=== PATIENT | male | born 1965 | race African-American/Black ===

== ENCOUNTER → 2016-11-18 | Outpatient (CLI) | payer OTHER ==
[2016-11-18 11:56] LABS: ABSOLUTE EOSINOPHILS # (AUTO) 0.1 10^3/uL (0.0-0.6); ABSOLUTE LYMPHOCYTES (AUTO) 2.5 10^3/uL (0.5-4.7); ABSOLUTE MONOCYTES (AUTO) 0.6 10^3/uL (0.1-1.4); ABSOLUTE NEUT (AUTO) 5.2 10^3/uL (1.7-8.2); BASOPHILS % (AUTO) 0.4 % (0-2); EOSINOPHILS % (AUTO) 1.1 % (0-6); HEMATOCRIT 37.4 % (37.9-51.0); HEMOGLOBIN 12.7 g/dL (13.5-17.0); HGB HCT DIFFERENCE 0.7; LYMPHOCYTES % (AUTO) 29.5 % (13-45); MEAN CORPUSCULAR HEMOGLOBIN 32.4 pg (27.0-33.4); MEAN CORPUSCULAR HGB CONC 33.9 g/dL (32.0-36.0); MEAN CORPUSCULAR VOLUME 96 fl (80-97); RED BLOOD COUNT 3.92 10^6/uL (4.35-5.55); RED CELL DISTRIBUTION WIDTH 14.2 % (11.5-14.0); WHITE BLOOD COUNT 8.4 10^3/uL (4.0-10.5)
[2016-11-18 12:24] LABS: ALANINE AMINOTRANSFERASE 36 U/L (21-72); ALBUMIN 3.6 g/dL (3.5-5.0); ALKALINE PHOSPHATASE 95 U/L (38-126); ANION GAP 6 (5-19); ASPARTATE AMINO TRANSFERASE 18 U/L (17-59); BILIRUBIN,TOTAL 0.5 mg/dL (0.2-1.3); BLOOD UREA NITROGEN 13 mg/dL (7-20); CALCIUM 9.4 mg/dL (8.4-10.2); CARBON DIOXIDE 27 mmol/L (22-30); CHLORIDE 107 mmol/L (98-107); CHOLESTEROL 192.97 mg/dL (0-200); CREATININE RESULT 1.18 mg/dL (0.52-1.25); Direct HDL 64 mg/dL (>40); GLUCOSE 90 mg/dL (75-110); POTASSIUM 4.2 mmol/L (3.6-5.0); SODIUM 139.7 mmol/L (137-145); TRIGLYCERIDES 146 mg/dL (<150)
[2016-11-18 12:41] LABS: DIRECT LDL 85 mg/dL (<100)
--- NOTE | 2016-11-18 20:08 | EKG REPORT ---
SEVERITY:- ABNORMAL ECG - SINUS RHYTHM FIRST DEGREE AV BLOCK NONSPECIFIC T ABNORMALITIES, INFERIOR LEADS : Confirmed by: Scooby Jarrett 18-Nov-2016 20:06:56
== END ==
LOC: CCC 10:04
DX: I10 Essential (primary) hypertension (principal); R07.9 Chest pain, unspecified
CPT/HCPCS: 36415; 80053; 80061; 83036; 84153; 84443; 85025; 93005; 93010

== ENCOUNTER → 2016-12-02 | Outpatient (CLI) | payer OTHER ==
[~2016-12-02] MED LIST: AMLODIPINE BESYLATE 2.5 MG TABLET PO ONE
--- NOTE | 2016-12-02 18:59 | XCELERA REPORT ---
[address] [address] Transthoracic Echocardiogram Report Name: ESTHER TODD Age: 51 yrs Gender: Male : 1965 Patient Status: Outpatient Patient Location: Study Date: 12/02/2016 10:38 AM Height: 71 in Weight: 236 lb BSA: 2.3 m2 Procedure: A two-dimensional transthoracic echocardiogram with color flow and Doppler was performed. Study Quality: Fair. Reason For Study: CHEST PAIN and HTN. History: CHEST PAIN and HTN. Ordering Physician: [facility] Performed By: Tarah Panchal Interpretation Summary The left ventricle is normal in size. There is mild concentric left ventricular hypertrophy. LV EF is 60% Left ventricular systolic function is normal. Doppler measurements suggest normal left ventricular diastolic function The left ventricular wall motion is normal. There is no thrombus. The right ventricle is normal in size and function. The right atrium is normal. The left atrial size is normal. There is no evidence of mitral valve prolapse. There is no mitral valve stenosis. There is no mitral regurgitation noted. There is no aortic valve stenosis There is no LVOT obstruction. No aortic regurgitation is present. There is no tricuspid stenosis. There is a trace amount of tricuspid regurgitation Right ventricular systolic pressure is normal. RVSP is 21 mm of Hg , with RA mean of 5. There is no pericardial effusion. MMode/2D Measurements \T\ Calculations RVDd: 2.0 cm LVIDd: 4.3 cm FS: 30.4 % Ao root diam: 3.5 cm IVSd: 1.2 cm LVIDs: 3.0 cm EDV(Teich): 83.4 ml LVPWd: 1.2 cm ESV(Teich): 34.9 ml Ao root area: 9.6 cm2 EF(Teich): 58.2 % LA dimension: 3.5 cm LVOT diam: 2.5 cm LVOT area: 5.1 cm2 Doppler Measurements \T\ Calculations MV E max pablo: MV P1/2t max pablo: Ao V2 max: LV V1 max P.5 cm/sec 47.8 cm/sec 93.6 cm/sec 2.3 mmHg MV A max pablo: MV P1/2t: 41.8 msec Ao max PG: LV V1 max: 62.3 cm/sec MVA(P1/2t): 5.3 cm2 3.5 mmHg 75.9 cm/sec MV E/A: 0.76 MV dec slope: JACKIE(V,D): 4.1 cm2 335.1 cm/sec2 PA V2 max: TR max pablo: 54.0 cm/sec 199.7 cm/sec PA max PG: TR max P.0 mmHg 1.2 mmHg Left Ventricle The left ventricle is normal in size. There is mild concentric left ventricular hypertrophy. LV EF is 60%. Left ventricular systolic function is normal. Doppler measurements suggest normal left ventricular diastolic function. The left ventricular wall motion is normal. There is no thrombus. There is no ventricular septal defect visualized. Right Ventricle The right ventricle is normal in size and function. Atria The right atrium is normal. The left atrial size is normal. The interatrial septum is intact with no evidence for an atrial septal defect. Mitral Valve There is no evidence of mitral valve prolapse. There is no vegetation seen on the mitral valve. There is no mitral valve stenosis. There is no mitral regurgitation noted. Aortic Valve The aortic valve is trileaflet. The aortic valve opens well. There is no aortic valvular vegetation. There is no aortic valve stenosis. There is no LVOT obstruction. No aortic regurgitation is present. Tricuspid Valve There is no tricuspid stenosis. There is a trace amount of tricuspid regurgitation. Right ventricular systolic pressure is normal. RVSP is 21 mm of Hg , with RA mean of 5. Pulmonic Valve There is no pulmonic valvular stenosis. There is no pulmonic valvular regurgitation. Great Vessels The aortic root is normal size. Effusions There is no pericardial effusion. : [facility] > Clari Thomas
--- NOTE | 2016-12-03 20:16 | DRAGON STRESS TEST REPORT ---
Exercise EKG treadmill stress test. Data procedure: 12/02/2016. Ordering Provider: [facility]. Indication: Chest pain Coronary risk factors:. Age, and hypertension. Significant physical findings prior to stress testing show a blood pressure of 77 bpm. An subsequently the patient underwent stress testing. Auscultation of the heart shows normal S1 and S2. No S3 or S4 gallops. Systolic murmur in the left sternal border and apex. Lungs are clear to auscultation and percussion. Resting 12-lead EKG:. Sinus Rhythm T inversion in lead 3 only. Procedure: The patient was excised on a standard Librado protocol. . The patient walked a total of 7 minutes and 8 seconds on this protocol and reached a peak heart rate of 141 beats per minute, which is 83% of maximum predicted heart rate for age. This is at a workload of 8.75 METS. The test was stopped because of. The patient described no symptoms of chest pain/discomfort . At peak exercise the patient complained of dizziness. There was no arrhythmias seen but the patient's blood pressure was 198/7072, which could be the cause patient dizziness this soon subsided with the patient rested. Exercise EKG's show:. There is no EKG evidence of excise induced myocardial ischemia. Arrhythmias seen:None. The blood pressure response was per intensive. At peak exercise the blood pressure was 198/72 millimeters of Hg. The double product was 32.0 K. Summary of findings and interpretation: 1. No chest pain or chest discomfort symptoms reproduced. 2. No EKG evidence of ischemia in the form of ST segment depression. 3. Normal blood pressure response. 4. No arrhythmias seen. 5. Good exercise tolerance, good aerobic capacity. Diagnostic treadmill stress test negative for ischemia by EKG criteria.. 6.. The patient complains of dizziness at peak exercise is secondary uncontrolled hypertension Recommendations: Aggressive risk factor modification, and treatment of underlying co-morbidities. JENA
== END ==
LOC: SP 08:43
DX: R07.9 Chest pain, unspecified (principal); I10 Essential (primary) hypertension
CPT/HCPCS: 93017; 93306

== ENCOUNTER 2016-12-24 12:48 | Emergency (ER) | payer SELFPAY ==
[2016-12-24] MEDS ORDERED: IBUPROFEN 800 MG TABLET PO ONE (13:35)
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
[2016-12-24] MEDS ORDERED: OXYCODONE-ACETAMINOPHEN 5-325 MG TABLET PO ONE (15:21)
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
[2016-12-24 16:44] LABS: APPEARANCE,URINE CLEAR; BILIRUBIN,URINE NEGATIVE (NEGATIVE); GLUCOSE, URINE NEGATIVE (NEGATIVE); KETONES,URINE NEGATIVE (NEGATIVE); LEUKOCYTE ESTERASE,URINE NEGATIVE (NEGATIVE); NITRITE,URINE NEGATIVE (NEGATIVE); PROTEIN,URINE NEGATIVE (NEGATIVE); URINE SPECIFIC GRAVITY 1.021; UROBILINOGEN,URINE NEGATIVE mg/dL (<2.0)
[2016-12-24 17:47] VITALS: BP 156/114
== END 2016-12-24 17:28 | disposition home or self-care (01) ==
LOC: ER 12:48
DX: S22.39XA Fracture of one rib, unspecified side, initial encounter for closed fracture (principal); S20.211A Contusion of right front wall of thorax, initial encounter; R07.81 Pleurodynia; I10 Essential (primary) hypertension; M25.511 Pain in right shoulder; F17.200 Nicotine dependence, unspecified, uncomplicated; Y04.8XXA Assault by other bodily force, initial encounter
CPT/HCPCS: 81001; 99284

== ENCOUNTER 2016-12-27 00:04 | Emergency (ER) | payer OTHER ==
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
[2016-12-27 06:56] VITALS: BP 140/94
== END 2016-12-27 06:05 | disposition home or self-care (01) ==
LOC: ER 00:04
DX: S20.212A Contusion of left front wall of thorax, initial encounter (principal); S49.91XA Unspecified injury of right shoulder and upper arm, initial encounter; M25.511 Pain in right shoulder; R07.81 Pleurodynia; Y04.0XXA Assault by unarmed brawl or fight, initial encounter; F17.200 Nicotine dependence, unspecified, uncomplicated; I10 Essential (primary) hypertension; Z88.5 Allergy status to narcotic agent
CPT/HCPCS: 99282

== ENCOUNTER 2017-09-21 08:40 | Emergency (ER) | payer OTHER ==
--- NOTE | 2017-09-21 09:47 | ER Document Report ---
ED General - General Chief Complaint: Back Pain Stated Complaint: NECK PAIN Time Seen by Provider: 09/21/17 09:46 Mode of Arrival: Ambulatory Information source: Patient Notes: 52-year-old male presents with complaints of sciatic pain. Patient notes he has had a history of sciatica in the past which resolved. Patient denies any fevers or chills denies any sudden trauma. Patient denies any numbness weakness loss of bowel or bladder function TRAVEL OUTSIDE OF THE [place] IN LAST 30 DAYS: No - HPI Onset: Other - 3 day duration Onset/Duration: Persistent, Gone - Currently no pain Quality of pain: Achy Severity: Mild Pain Level: 1 Associated symptoms: Body/muscle aches Exacerbated by: Movement Relieved by: Denies Similar symptoms previously: Yes Recently seen / treated by doctor: Yes - Related Data Allergies/Adverse Reactions: tramadol [Tramadol] Allergy (Mild, Verified 09/21/17 08:42) Hives Past Medical History - Social History Smoking Status: Never Smoker Cigarette use (# per day): No Chew tobacco use (# tins/day): No Smoking Education Provided: No Family History: Reviewed & Not Pertinent - Past Medical History Cardiac Medical History: Reports: Hx Hypertension Renal/ Medical History: Denies: Hx Peritoneal Dialysis Past Surgical History: Reports: Hx Orthopedic Surgery - Immunizations Immunizations up to date: Yes Hx Diphtheria, Pertussis, Tetanus Vaccination: Yes Review of Systems - Review of Systems Notes: REVIEW OF SYSTEMS: CONSTITUTIONAL : Denies fever, chills, or sweats. Denies recent illness. EENT: Denies eye, ear, throat, or mouth pain or symptoms. Denies nasal or sinus congestion or discharge. Denies throat, tongue, or mouth swelling or difficulty swallowing. CARDIOVASCULAR: Denies chest pain. Denies palpitations or racing or irregular heart beat. Denies ankle edema. RESPIRATORY: Denies cough, cold, or chest congestion. Denies shortness of breath, difficulty breathing, or wheezing. GASTROINTESTINAL: Denies abdominal pain or distention. Denies nausea, vomiting , or diarrhea. Denies blood in vomitus, stools, or per rectum. Denies black, tarry stools. Denies constipation. GENITOURINARY: Denies difficulty urinating, painful urination, burning, frequency, blood in urine, or discharge. MUSCULOSKELETAL: Admits to low back pain SKIN: Denies rash, lesions or sores. HEMATOLOGIC : Denies easy bruising or bleeding. LYMPHATIC: Denies swollen, enlarged glands. NEUROLOGICAL: Denies confusion or altered mental status. Denies passing out or loss of consciousness. Denies dizziness or lightheadedness. Denies headache. Denies weakness or paralysis or loss of use of either side. Denies problems with gait or speech. Denies sensory loss, numbness, or tingling. Denies seizures. PSYCHIATRIC: Denies anxiety or stress. Denies depression, suicidal ideation, or homicidal ideation. ALL OTHER SYSTEMS REVIEWED AND NEGATIVE. Dictation was performed using [employer] voice recognition software PHYSICAL EXAMINATION: GENERAL: Well-appearing, well-nourished and in no acute distress. HEAD: Atraumatic, normocephalic. EYES: Pupils equal round and reactive to light, extraocular movements intact, sclera anicteric, conjunctiva are normal. ENT: Nares patent, oropharynx clear without exudates. Moist mucous membranes. NECK: Normal range of motion, supple without lymphadenopathy LUNGS: Breath sounds clear to auscultation bilaterally and equal. No wheezes rales or rhonchi. HEART: Regular rate and rhythm without murmurs ABDOMEN: Soft, nontender, nondistended abdomen. No guarding, no rebound. No masses appreciated. Musculoskeletal: Normal range of motion, no pitting or edema. No cyanosis. Admits to tenderness of the left and right buttocks region NEUROLOGICAL: Cranial nerves grossly intact. Normal speech, normal gait. Normal sensory, motor exams PSYCH: Normal mood, normal affect. SKIN: Warm, Dry, normal turgor, no rashes or lesions noted. Physical Exam - Vital signs Vitals: Temp Pulse Resp BP Pulse Ox 98.6 F 93 16 159/117 H 99 09/21/17 08:48 09/21/17 08:48 09/21/17 08:48 09/21/17 08:48 09/21/17 08:48 Course - Re-evaluation Re-evalutation: 09/21/17 10:13 Patient's presentation is consistent with sciatica, he has no neurological deficits is able to ambulate currently has no significant tenderness. He denies any cauda equina concerns therefore I believe he is stable for discharge with treatment. Patient denies a history of diabetes and has been spoken about with the risk factors of steroids After performing a Medical Screening Examination, I estimate there is LOW risk for EXPANDING OR RUPTURED ABDOMINAL AORTIC ANEURYSM, CAUDA EQUINA SYNDROME, EPIDURAL MASS LESION, or HERNIATED DISK CAUSING SEVERE SPINAL STENOSIS, thus I consider the discharge disposition reasonable. I have reevaluated this patient multiple times and no significant life threatening changes are noted. The patient and I have discussed the diagnosis and risks, and we agree with discharging home and close follow-up. We also discussed returning to the Emergency Department immediately if new or worsening symptoms occur with the understanding that symptoms and presentations can change. We have discussed the symptoms which are most concerning (e.g., saddle anesthesia, urinary or bowel incontinence or retention, changing or worsening pain) that necessitate immediate return. - Vital Signs Vital signs: Temp Pulse Resp BP Pulse Ox 98.6 F 93 16 159/117 H 99 09/21/17 08:48 09/21/17 08:48 09/21/17 08:48 09/21/17 08:48 09/21/17 08:48 Discharge - Discharge Clinical Impression: Sciatic leg pain Condition: Stable Disposition: HOME, SELF-CARE Instructions: Low Back Pain ([facility]) Additional Instructions: Follow up with your physician tomorrow for further care or return to the ED IMMEDIATELY if symptoms worsen or new concerns occur. If you cannot afford to follow up with your primary care physician a list of low cost clinics have been provided at the end of your discharge papers as well. Prescriptions: Meloxicam [Mobic] 7.5 mg PO BID #20 tablet Prednisone [Deltasone 20 mg Tablet] 3 tab PO DAILY 5 Days tablet
[2017-09-21] MEDS ORDERED: DEXAMETHASONE SOD PHOS INJ 10 MG/1 ML VIAL IM ONE (09:49)
[2017-09-21] MEDS ORDERED: KETOROLAC TROMETHAMINE 60 MG/2 ML SDV IM ONE (09:49)
[2017-09-21 10:31] VITALS: BP 155/90
== END 2017-09-21 10:29 | disposition home or self-care (01) ==
LOC: ER 08:40
DX: M53.3 Sacrococcygeal disorders, not elsewhere classified (principal); M79.606 Pain in leg, unspecified; M54.9 Dorsalgia, unspecified
CPT/HCPCS: 99283; 96372; J1885; J1100

== ENCOUNTER 2017-10-07 09:31 | Emergency (ER) | payer OTHER ==
[2017-10-07] MEDS ORDERED: KETOROLAC TROMETHAMINE 60 MG/2 ML SDV IM ONE (10:42)
--- NOTE | 2017-10-07 11:03 | ER Document Report ---
HPI - HPI Patient complains to provider of: Sciatic nerve pain Onset: Other Onset/Duration: Gradual Quality of pain: Achy Severity: Moderate Pain Level: 3 Context: Patient states he has chronic sciatic nerve pain. Was seen in the emergency room 2 weeks ago and states the medications he was given helped with the pain. Patient has not followed up with his primary care physician. Patient denies loss of control of bowels or bladder Associated Symptoms: None Exacerbated by: Movement, Walking Relieved by: Remaining still Similar symptoms previously: Yes Recently seen / treated by doctor: Yes - ROS ROS below otherwise negative: Yes Systems Reviewed and Negative: Yes All other systems reviewed and negative - CONSTITUTIONAL Constitutional: DENIES: Fever - EENT EENT: DENIES: Congestion - NEURO Neurology: DENIES: Headache - CARDIOVASCULAR Cardiovascular: DENIES: Chest pain - RESPIRATORY Respiratory: DENIES: Trouble Breathing - GASTROINTESTINAL Gastrointestinal: DENIES: Abdominal Pain - URINARY Urinary: DENIES: Dysuria, Urgency, Frequency - MUSCULOSKELETAL Musculoskeletal: REPORTS: Extremity pain - DERM Skin Color: Normal Skin Problems: None Past Medical History - General Information source: Patient - Social History Smoking Status: Current Every Day Smoker Chew tobacco use (# tins/day): No Frequency of alcohol use: Rare Drug Abuse: Marijuana Lives with: Family Family History: Reviewed & Not Pertinent Patient has suicidal ideation: No Patient has homicidal ideation: No - Past Medical History Cardiac Medical History: Reports: Hx Hypertension Past Surgical History: Reports: Hx Orthopedic Surgery - Immunizations Immunizations up to date: Yes Hx Diphtheria, Pertussis, Tetanus Vaccination: Yes Vertical Provider Document - CONSTITUTIONAL Agree With Documented VS: Yes Exam Limitations: No Limitations General Appearance: WD/WN, No Apparent Distress Notes: Patient able to raise himself up on bed without difficulty or looks of discomfort. - INFECTION CONTROL TRAVEL OUTSIDE OF THE [place] IN LAST 30 DAYS: No - HEENT HEENT: Atraumatic, Normocephalic - RESPIRATORY Respiratory: Breath Sounds Normal, No Respiratory Distress O2 Sat by Pulse Oximetry: 100 - CARDIOVASCULAR Cardiovascular: Regular Rate, Regular Rhythm - GI/ABDOMEN Gastrointestinal: Abdomen Soft, Abdomen Non-Tender - BACK Notes: Back nontender. Patient complains of pain when pushing on sciatic nerve over right buttock. - MUSCULOSKELETAL/EXTREMETIES Musculoskeletal/Extremeties: MAEW - NEURO Level of Consciousness: Awake, Alert, Appropriate Motor/Sensory: No Motor Deficit, No Sensory Deficit - DERM Integumentary: Warm, Dry Course - Vital Signs Vital signs: Temp Pulse Resp BP Pulse Ox 98.0 F 106 H 16 127/93 H 100 10/07/17 09:39 10/07/17 09:39 10/07/17 09:39 10/07/17 09:39 10/07/17 09:39 Discharge - Discharge Clinical Impression: Right sciatic nerve pain Condition: Good Disposition: HOME, SELF-CARE Instructions: Ice Packs ([facility]), Warm Packs ([facility]) Additional Instructions: Take meds as prescribed You must follow-up with your doctor for further evaluation Return as needed Prescriptions: Meloxicam 7.5 mg PO DAILY #7 tablet Prednisone [Deltasone 10 mg Tablet] 10 mg PO ASDIR PRN #21 tablet PRN Reason:
[2017-10-07 11:16] VITALS: BP 136/97
== END 2017-10-07 11:15 | disposition home or self-care (01) ==
LOC: ER 09:31
DX: M54.31 Sciatica, right side (principal); F17.200 Nicotine dependence, unspecified, uncomplicated
CPT/HCPCS: 99283; 96372; J1885

== ENCOUNTER → 2018-01-05 | Outpatient (CLI) | payer OTHER ==
--- NOTE | 2018-01-05 09:21 | RADIOLOGY REPORT (SQ) ---
EXAM DESCRIPTION: SKULL 1-3 VIEWS COMPLETED DATE/TIME: 01/05/2018 8:07 am REASON FOR STUDY: TO Screen for MRI, Eval For Radiopaque foreign body M54.5 LOW BACK PAIN COMPARISON: None. NUMBER OF VIEWS: Two view. TECHNIQUE: Images of the facial bones acquired. LIMITATIONS: None. FINDINGS: ORBITS: No fracture. No foreign body. SINUSES: No mucosal thickening. No air fluid levels. FACIAL BONES: No fracture. OTHER: No other significant finding. IMPRESSION: NO FOREIGN BODY OR FRACTURE OF THE FACIAL BONES. TECHNICAL DOCUMENTATION: JOB ID: [id number]- All Rights Reserved Reading location - IP/workstation name: [email or web address]
--- NOTE | 2018-01-05 09:41 | RADIOLOGY REPORT (SQ) ---
EXAM DESCRIPTION: MRI LUMBAR SPINE WITHOUT COMPLETED DATE/TIME: 01/05/2018 8:35 am REASON FOR STUDY: LOW BACK PAIN (M54.5) M54.5 LOW BACK PAIN COMPARISON: None. TECHNIQUE: Sagittal and Axial imaging includes T1, T2, STIR and gradient echo sequences. Coronal T2/ HASTE imaging. LIMITATIONS: None. FINDINGS: VISUALIZED UPPER ABDOMEN: Limited evaluation. No acute or suspicious findings suggested. SEGMENTATION: No transitional anatomy. The lowest well-developed disc space is labeled L5-S1. ALIGNMENT: Anatomic. VERTEBRAE: Intact. BONE MARROW: Mild fatty vertebral body endplate changes at L4-5 and L5-S1 DISC SIGNAL: Decreased T2 weighted intervertebral disc signal itself 3 4, L4-5, L5-S1 POSTERIOR ELEMENTS: Generally intact. No pars defect evident. HARDWARE: None in the spine. CORD AND CONUS: Normal in size and signal intensity. Conus at the L1 level. SOFT TISSUES: No aortic aneurysm seen. No bulky retroperitoneal adenopathy or mass. No paraspinal mas s or fluid. T10-11: At the upper edge of the field of view. Moderate facet hypertrophy is present causing at le ast mild bilateral foraminal narrowing. No gross central stenosis. T11-12: Moderate bilateral facet hypertrophy. Moderate right, mild left foraminal narrowing. No ce ntral stenosis T12-L1: Mild bilateral facet arthropathy. No central or foraminal encroachment. L1-L2: Mild diffuse posterior disc bulging and moderate bilateral facet and ligament hypertrophy. Yariel rderline central canal narrowing. No foraminal stenosis. L2-L3: Mild diffuse posterior disc bulging and moderate bilateral facet and ligament hypertrophy. Yariel rderline central canal stenosis. No foraminal stenosis L3-L4: Mild central canal narrowing results from broad diffuse posterior disc bulge, moderate to tate ed bilateral facet and ligament hypertrophy and dorsal epidural fat. Partial effacement of the CSF a round the lumbar nerve roots on axial T2 image 19. Mild bilateral inferior foraminal narrowing witho ut exiting L3 nerve root impingement L4-L5: Broad diffuse posterior disc bulge and bony spurring with a right paracentral protrusion. Mod erate bilateral facet and ligament hypertrophy. Mild central canal stenosis. There is asymmetric fl attening of the thecal sac along the right lateral recess containing the right L5 proximal nerve root best shown on axial T2 image 26. Mild to moderate bilateral foraminal narrowing without exiting L4 nerve root impingement L5-S1: Broad diffuse posterior disc bulging with a small left paracentral disc protrusion/herniation is present. This finding along with moderate bilateral facet hypertrophy and prominent dorsal epidur al fat causes mild central canal narrowing with partial effacement of the CSF around the lumbar nerve roots. There is asymmetric flattening of the thecal sac at the takeoff of the proximal left S1 nerv e root in the lateral recess. This is best shown on axial T2 image 33. Elsewhere at L5-S1, high-grade right foraminal stenosis is present with partial effacement of fat syd und the exiting right L5 nerve root. There is moderate left foraminal narrowing without definite lef t exiting L5 nerve root impingement SACRUM: Visualized upper sacrum intact. OTHER: No other significant findings. IMPRESSION: Degenerative disc changes most pronounced at L5-S1 as above TECHNICAL DOCUMENTATION: JOB ID: [id number] [employer]- All Rights Reserved Reading location - IP/workstation name: [email or web address]
== END ==
LOC: RAD 07:40
DX: M54.5 Low back pain (principal); M51.37 Other intervertebral disc degeneration, lumbosacral region
CPT/HCPCS: 70250; 72148

== ENCOUNTER 2018-02-12 11:22 | Emergency (ER) | payer OTHER ==
[2018-02-12 11:45] VITALS: BP 134/94
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
== END 2018-02-12 13:22 | disposition home or self-care (01) ==
LOC: ER 11:22
DX: G89.29 Other chronic pain (principal); M54.41 Lumbago with sciatica, right side; M54.42 Lumbago with sciatica, left side; R20.0 Anesthesia of skin; M25.511 Pain in right shoulder; I10 Essential (primary) hypertension; F17.210 Nicotine dependence, cigarettes, uncomplicated; Z71.6 Tobacco abuse counseling
CPT/HCPCS: 99283; 99406

== ENCOUNTER 2018-09-17 17:27 | Emergency (ER) | payer OTHER ==
[2018-09-17 17:38] VITALS: BP 137/102
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
== END 2018-09-17 18:02 | disposition home or self-care (01) ==
LOC: ER 17:27
DX: R60.9 Edema, unspecified (principal); I10 Essential (primary) hypertension; R42 Dizziness and giddiness; F17.210 Nicotine dependence, cigarettes, uncomplicated; Z88.6 Allergy status to analgesic agent
CPT/HCPCS: 99284

== ENCOUNTER → 2018-10-14 | Outpatient (CLI) | payer OTHER ==
--- NOTE | 2018-10-14 19:30 | RADIOLOGY REPORT (SQ) ---
EXAM DESCRIPTION: MRA HEAD WITHOUT COMPLETED DATE/TIME: 10/14/2018 7:19 pm REASON FOR STUDY: G44.221 G44.221 CHRONIC TENSION-TYPE HEADACHE, INTRACTABLE COMPARISON: None. TECHNIQUE: Axial 3-D [id number] acquisition imaging performed through the brain in the area of t he [place] of [place]. Images reformatted using 3-D MIPS. LIMITATIONS: None. FINDINGS: SOURCE IMAGES: No unexpected findings on source images. No large masses. 3-D MIP: No aneurysm. No occlusions. No significant stenosis. OTHER: No other significant finding. IMPRESSION: NORMAL MRA OF THE [place] OF [place]. TECHNICAL DOCUMENTATION: JOB ID: [id number] [employer]- All Rights Reserved Reading location - IP/workstation name: [email or web address]
--- NOTE | 2018-10-14 19:46 | RADIOLOGY REPORT (SQ) ---
EXAM DESCRIPTION: MRI HEAD COMBO COMPLETED DATE/TIME: 10/14/2018 7:18 pm REASON FOR STUDY: G44.221 CHRONIC TENSION-TYPE HEADACHE, INTRACTABLE G44.221 CHRONIC TENSION-TYPE H EADACHE, INTRACTABLE COMPARISON: None. TECHNIQUE: Multiplanar imaging includes noncontrasted T1, T2, FLAIR, diffusion with ADC map and post gadolinium contrast T1 sequences. Images stored on PACS. CONTRAST TYPE AND DOSE: 15 mL Dotarem. RENAL FUNCTION: Creatinine 1.3 GFR greater than 60 LIMITATIONS: None. FINDINGS: ANATOMY: No anomalies. Normal vascular flow voids. Pituitary fossa normal. CSF SPACES: Normal in size and contour. No hemorrhage. CEREBRUM: Sulci and gyri normal in size and contour. Normal white matter signal on FLAIR imaging. No evidence of hemorrhage, mass, or extraaxial fluid collection. No abnormal enhancement post contrast. POSTERIOR FOSSA: No signal alteration. No hemorrhage. No edema, masses, or mass effect. Internal yoshi tory canals, cerebellopontine angles, mastoids normal. No enhancing lesions. No abnormal enhancement post contrast. DIFFUSION IMAGING: Negative for acute or subacute infarction. ORBITS: No masses. Globes normal. PARANASAL SINUSES: No fluid levels. Mucosa normal. OTHER: No other significant finding. IMPRESSION: NORMAL MRI OF THE BRAIN WITHOUT AND WITH INTRAVENOUS GADOLINIUM CONTRAST. EVIDENCE OF ACUTE STROKE: NO. TECHNICAL DOCUMENTATION: JOB ID: [id number] [employer]- All Rights Reserved Reading location - IP/workstation name: [email or web address]
== END ==
LOC: RAD 19:42
DX: G44.221 Chronic tension-type headache, intractable (principal)
CPT/HCPCS: 70544; 70553; 82565

== ENCOUNTER → 2018-10-26 | Outpatient (CLI) | payer OTHER ==
[2018-10-26 10:13] LABS: ALANINE AMINOTRANSFERASE 46 U/L (21-72); ALKALINE PHOSPHATASE 93 U/L (38-126); ANION GAP 6 (5-19); ASPARTATE AMINO TRANSFERASE 36 U/L (17-59); BILIRUBIN,DIRECT 0.2 mg/dL (0.0-0.4); BILIRUBIN,TOTAL 0.4 mg/dL (0.2-1.3); BLOOD UREA NITROGEN 13 mg/dL (7-20); CALCIUM 9.3 mg/dL (8.4-10.2); CARBON DIOXIDE 31 mmol/L (22-30); CHLORIDE 105 mmol/L (98-107); CHOLESTEROL 175.93 mg/dL (0-200); GLUCOSE 92 mg/dL (75-110); POTASSIUM 4.4 mmol/L (3.6-5.0); SODIUM 141.9 mmol/L (137-145); TOTAL PROTEIN 6.3 g/dL (6.3-8.2); TRIGLYCERIDES 123 mg/dL (<150)
[2018-10-26 10:26] LABS: DIRECT LDL 87 mg/dL (<100)
[2018-10-26 11:20] LABS: FOLATE 8.78 ng/mL (>2.76)
== END ==
LOC: CCC 08:21
DX: I10 Essential (primary) hypertension (principal); G90.09 Other idiopathic peripheral autonomic neuropathy
CPT/HCPCS: 36415; 80053; 80061; 82607; 82746; 83036; 84153; 84443

== ENCOUNTER 2019-03-21 07:56 | Emergency (ER) | payer OTHER ==
[2019-03-21 08:13] VITALS: BP 110/81
[2019-03-21] MEDS ORDERED: PREDNISONE 20 MG TABLET PO ONE (08:20)
[2019-03-21] MEDS ORDERED: HYDROCODONE/ACETAMINOPHEN 5-325 MG TABLET PO ONE (08:20)
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
== END 2019-03-21 09:03 | disposition home or self-care (01) ==
LOC: ER 07:56
DX: M54.41 Lumbago with sciatica, right side (principal); G89.29 Other chronic pain; I10 Essential (primary) hypertension
CPT/HCPCS: 99283; J7512

== ENCOUNTER → 2019-03-26 | Day surgery (SDC) | payer OTHER ==
[~2019-03-26] MED LIST changes: -AMLODIPINE BESYLATE 2.5 MG TABLET PO ONE; +BUPIVACAINE HCL 0.5 % INJ/PF 30 ML SDV ONE; +LIDOCAINE 1% INJ-PF (10 MG/ML) 30 ML SDV ONE; +METHYLPREDNISOLONE ACETATE INJ 80 MG/1 ML VIAL ONE
--- NOTE | 2019-03-26 14:19 | RADIOLOGY REPORT (SQ) ---
EXAM DESCRIPTION: INJECT/ASPIR HIP/SHLDR/KNEE; FLUORO/NEEDLE PLACEMENT COMPLETED DATE/TIME: 03/26/2019 1:43 pm REASON FOR STUDY: M54.5 LOW BACK PAIN M54.5 LOW BACK PAIN COMPARISON: None. FLUOROSCOPY TIME: 0.5 minutes of fluoroscopy was used. 1 images saved to PACS. LIMITATIONS: None. PROCEDURE: SITE OF INJECTION: Right sacral iliac joint LOCALIZING CONTRAST TYPE AND DOSE: None MEDICATION TYPE AND DOSE: 80 mg Depo-Medrol and 1 mL Sensorcaine Using local anesthesia and sterile technique with fluoroscopic guidance, the needle was advanced into the joint. This was followed by therapeutic injection of the indicated medications. The needle was removed. There were no immediate complications. Preprocedure pain level: 5/10. Postprocedure pain level: 0/10. IMPRESSION: THERAPEUTIC INJECTION OF THE RIGHT SI JOINT ABOVE. COMMENT: Patient medication list reviewed: Yes- Quality ID# [id number]:Eligible professional attests to doc umenting in the medical record they obtained, updated, or reviewed the patient's current medications. . Quality ID [id number]: Final reports for procedures using fluoroscopy that document radiation exposure anne marie mykel, or exposure time and number of fluorographic images (if radiation exposure indices are not avail able) TECHNICAL DOCUMENTATION: JOB ID: [id number] [employer]- All Rights Reserved Reading location - IP/workstation name: [email or web address]
--- NOTE | 2019-03-26 14:19 | RADIOLOGY REPORT (SQ) ---
EXAM DESCRIPTION: INJECT/ASPIR HIP/SHLDR/KNEE; FLUORO/NEEDLE PLACEMENT COMPLETED DATE/TIME: 03/26/2019 1:43 pm REASON FOR STUDY: M54.5 LOW BACK PAIN M54.5 LOW BACK PAIN COMPARISON: None. FLUOROSCOPY TIME: 0.5 minutes of fluoroscopy was used. 1 images saved to PACS. LIMITATIONS: None. PROCEDURE: SITE OF INJECTION: Right sacral iliac joint LOCALIZING CONTRAST TYPE AND DOSE: None MEDICATION TYPE AND DOSE: 80 mg Depo-Medrol and 1 mL Sensorcaine Using local anesthesia and sterile technique with fluoroscopic guidance, the needle was advanced into the joint. This was followed by therapeutic injection of the indicated medications. The needle was removed. There were no immediate complications. Preprocedure pain level: 5/10. Postprocedure pain level: 0/10. IMPRESSION: THERAPEUTIC INJECTION OF THE RIGHT SI JOINT ABOVE. COMMENT: Patient medication list reviewed: Yes- Quality ID# [id number]:Eligible professional attests to doc umenting in the medical record they obtained, updated, or reviewed the patient's current medications. . Quality ID [id number]: Final reports for procedures using fluoroscopy that document radiation exposure anne marie mykel, or exposure time and number of fluorographic images (if radiation exposure indices are not avail able) TECHNICAL DOCUMENTATION: JOB ID: [id number] [employer]- All Rights Reserved Reading location - IP/workstation name: [email or web address]
== END ==
LOC: RAD 12:52
DX: M54.5 Low back pain (principal)
CPT/HCPCS: 20610; 77002; J3490 ×2; J1040

== ENCOUNTER 2019-11-12 14:52 | Emergency (ER) | payer OTHER ==
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
[2019-11-12] MEDS ORDERED: DEXAMETHASONE SOD PHOS INJ 10 MG/1 ML VIAL IM ONE (15:15)
[2019-11-12] MEDS ORDERED: KETOROLAC TROMETHAMINE 60 MG/2 ML SDV IM ONE (15:16)
--- NOTE | 2019-11-12 15:34 | RADIOLOGY REPORT (SQ) ---
EXAM DESCRIPTION: SHOULDER LEFT 2 OR MORE VIEWS COMPLETED DATE/TIME: 11/12/2019 3:22 pm REASON FOR STUDY: Chronic pain exacerbated COMPARISON: None. NUMBER OF VIEWS: Three views. TECHNIQUE: Internal rotation, external rotation, and Y view images acquired of the left shoulder. LIMITATIONS: None. FINDINGS: MINERALIZATION: Normal. BONES: No acute fracture. JOINTS: Osteoarthrosis of the acromioclavicular joint and findings of rotator cuff tendinopathy at th e greater tubercle of the humerus. VISUALIZED LUNGS AND RIBS: No pneumothorax or rib fracture. SOFT TISSUES: No radiopaque foreign body. OTHER: No other finding. IMPRESSION: No acute osseous abnormality of the left shoulder. TECHNICAL DOCUMENTATION: JOB ID: [id number] 2010 [employer]- All Rights Reserved Reading location - IP/workstation name: [email or web address]
--- NOTE | 2019-11-12 15:36 | RADIOLOGY REPORT (SQ) ---
EXAM DESCRIPTION: SHOULDER RIGHT 2 OR MORE VIEWS COMPLETED DATE/TIME: 11/12/2019 3:22 pm REASON FOR STUDY: Chronic pain exacerbated COMPARISON: AP internally rotated, AP externally rotated, and scapular Y-views of the right shoulder from 12/24/2016. NUMBER OF VIEWS: Three views. TECHNIQUE: Internal rotation, external rotation, and Y view images acquired of the right shoulder. LIMITATIONS: None. FINDINGS: MINERALIZATION: Normal. BONES: No acute fracture. JOINTS: Osteoarthrosis of the acromioclavicular joint and findings of rotator cuff tendinopathy at th e greater tubercle of the humerus. VISUALIZED LUNGS AND RIBS: No pneumothorax or rib fracture. SOFT TISSUES: No radiopaque foreign body. OTHER: No other finding. IMPRESSION: No acute osseous abnormality of the right shoulder. TECHNICAL DOCUMENTATION: JOB ID: [id number] 2010 [employer]- All Rights Reserved Reading location - IP/workstation name: [email or web address]
[2019-11-12 16:09] VITALS: BP 116/84
== END 2019-11-12 16:08 | disposition home or self-care (01) ==
LOC: ER 14:52
DX: G89.29 Other chronic pain (principal); M25.512 Pain in left shoulder; M25.511 Pain in right shoulder; F17.210 Nicotine dependence, cigarettes, uncomplicated; I10 Essential (primary) hypertension; Z88.6 Allergy status to analgesic agent
CPT/HCPCS: 73030 ×2; J1885; J1100; 96372; 99283

== ENCOUNTER 2019-12-07 00:08 | Emergency (ER) | payer OTHER ==
[2019-12-07] MEDS ORDERED: NALOXONE HCL INJ 2 MG/2 ML DISP.SYRIN IV ONE (00:51)
[2019-12-07 01:00] LABS: ALKALINE PHOSPHATASE 102 U/L (38-126); ANION GAP 6 (5-19); ASPARTATE AMINO TRANSFERASE 33 U/L (17-59); BILIRUBIN,TOTAL 0.3 mg/dL (0.2-1.3); BLOOD UREA NITROGEN 30 mg/dL (7-20); CALCIUM 9.3 mg/dL (8.4-10.2); CARBON DIOXIDE 29 mmol/L (22-30); CHLORIDE 102 mmol/L (98-107); GLUCOSE 102 mg/dL (75-110); POTASSIUM 3.6 mmol/L (3.6-5.0); TOTAL PROTEIN 6.6 g/dL (6.3-8.2)
[2019-12-07 01:01] LABS: ABSOLUTE LYMPHOCYTES (AUTO) 2.2 10^3/uL (0.5-4.7); ABSOLUTE MONOCYTES (AUTO) 0.7 10^3/uL (0.1-1.4); ABSOLUTE NEUT (AUTO) 6.1 10^3/uL (1.7-8.2); BASOPHILS % (AUTO) 0.4 % (0-2); EOSINOPHILS % (AUTO) 0.3 % (0-6); HEMATOCRIT 36.9 % (37.9-51.0); LYMPHOCYTES % (AUTO) 24.6 % (13-45); MEAN CORPUSCULAR HEMOGLOBIN 33.6 pg (27.0-33.4); MEAN CORPUSCULAR HGB CONC 35.2 g/dL (32.0-36.0); MEAN CORPUSCULAR VOLUME 96 fl (80-97); MONOCYTES % (AUTO) 7.8 % (3-13); PLATELET COUNT 265 10^3/uL (150-450); RED BLOOD COUNT 3.86 10^6/uL (4.35-5.55); RED CELL DISTRIBUTION WIDTH 13.4 % (11.5-14.0); SEGMENTED NEUTROPHILS % (AUTO) 66.9 % (42-78); TOTAL CELLS COUNTED % (AUTO) 100 %; WHITE BLOOD COUNT 9.1 10^3/uL (4.0-10.5)
[2019-12-07 01:03] LABS: ALCOHOL < 10 mg/dL (NONE DETECTED)
[2019-12-07] MEDS ORDERED: NORMAL SALINE 1000 ML 1,000 ML IV ONE ×2 (01:20→03:53)
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
[2019-12-07 05:06] LABS: APPEARANCE,URINE CLEAR; BILIRUBIN,URINE NEGATIVE (NEGATIVE); COLOR,URINE STRAW; GLUCOSE, URINE NEGATIVE (NEGATIVE); KETONES,URINE NEGATIVE (NEGATIVE); LEUKOCYTE ESTERASE,URINE NEGATIVE (NEGATIVE); NITRITE,URINE NEGATIVE (NEGATIVE); PROTEIN,URINE NEGATIVE (NEGATIVE); URINE SPECIFIC GRAVITY 1.006; UROBILINOGEN,URINE NEGATIVE mg/dL (<2.0)
[2019-12-07 05:18] VITALS: BP 112/68
[2019-12-07 05:26] LABS: URINE AMPHETAMINES SCREEN NEGATIVE; URINE BARBITURATES SCREEN NEGATIVE; URINE BENZODIAZEPINES SCREEN NEGATIVE; URINE COCAINE SCREEN NEGATIVE; URINE METHADONE SCREEN NEGATIVE; URINE PHENCYCLIDINE SCREEN NEGATIVE
[2019-12-07 05:36] LABS: URINE MARIJUANA (THC) SCREEN UNCONFIRMED POSITIVE
--- NOTE | 2019-12-07 11:59 | EKG REPORT ---
SEVERITY:- ABNORMAL ECG - SINUS RHYTHM FIRST DEGREE AV BLOCK BORDERLINE T ABNORMALITIES, INFERIOR LEADS : Confirmed by: Scooby Jarrett 07-Dec-2019 11:59:13
== END 2019-12-07 05:17 | disposition home or self-care (01) ==
LOC: ER 00:08
DX: T43.011A Poisoning by tricyclic antidepressants, accidental (unintentional), initial encounter (principal); R41.82 Altered mental status, unspecified; Y92.009 Unspecified place in unspecified non-institutional (private) residence as the place of occurrence of the external cause; M19.019 Primary osteoarthritis, unspecified shoulder; M16.10 Unilateral primary osteoarthritis, unspecified hip; Z79.899 Other long term (current) drug therapy; Z88.6 Allergy status to analgesic agent
CPT/HCPCS: 93005; 99285; 96361; 96374; 36415; 82962; 80307 ×3; 83735; 85025; 80053; 81001; 93010; J2310; J7030

== ENCOUNTER 2020-04-23 20:00 | Emergency (ER) | payer MEDICAID, OTHER ==
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
[2020-04-23] MEDS ORDERED: OXYCODONE-ACETAMINOPHEN 5-325 MG TABLET PO ONE (21:27)
[2020-04-23] MEDS ORDERED: KETOROLAC TROMETHAMINE 60 MG/2 ML SDV IM ONE (21:27)
[2020-04-23 22:06] VITALS: BP 145/94
== END 2020-04-23 22:05 | disposition home or self-care (01) ==
LOC: ER 20:00
DX: M23.8X1 Other internal derangements of right knee (principal); M67.912 Unspecified disorder of synovium and tendon, left shoulder; M62.838 Other muscle spasm; M25.561 Pain in right knee; M25.512 Pain in left shoulder; M25.551 Pain in right hip; G89.29 Other chronic pain; Z79.899 Other long term (current) drug therapy; F17.210 Nicotine dependence, cigarettes, uncomplicated; I10 Essential (primary) hypertension
CPT/HCPCS: 99283; 96372; J1885